=== PATIENT | female | born 1960 | race Caucasian/White ===

== ENCOUNTER 2016-07-18 13:11 | Emergency (ER) | payer BC ==
[~2016-07-18] VITALS: Ht 160 cm; Wt 96.3 kg
[~2016-07-18 13:11] MED LIST: ASPIR 8181 MG PO; CENTRUM SILVER1 EAC3 PO; FLEXERIL10 MG PO; PLAVIX75 MG PO
[2016-07-18 14:27] VITALS: BP 131/86
== END 2016-07-18 14:29 | disposition home or self-care (01) ==
LOC: EME 13:11 → EXP 13:11
PROC: 0HQGXZZ Repair Left Hand Skin, External Approach (ICD-10-PCS; principal; 2016-07-18)
DX: S61.215A Laceration without foreign body of left ring finger without damage to nail, initial encounter (principal); W26.0XXA Contact with knife, initial encounter; Y93.G1 Activity, food preparation and clean up; Z79.01 Long term (current) use of anticoagulants
CPT/HCPCS: 80053; 81003; 84702; 85027; 99281; 99284